=== PATIENT | female | born 1990 | race Caucasian/White ===

== ENCOUNTER 2022-09-26 11:07 | Outpatient (RCR) | payer OTHER, MEDICAID, SELFPAY ==
--- NOTE | 2022-09-26 17:21 | PT.OIE ---
Current Diagnoses Urge incontinence (09/26/22) Visit Care Team Role Provider Type Adarsh Thompson MD Attending Provider Non-Staff Referring Provider Specialty: STEWARD DISHWASHER Address: [address] [place] [address], [address], [place], [address] Email: Physical Therapy Initial Evaluation PT-OP-A Visit Information Start: 09/26/22 09:36 Freq: Status: Active Protocol: Document 09/26/22 11:15 [facility] (Rec: 09/26/22 11:31 [facility] [id number]) Out-Patient Physical Therapy Visit Information Visit Information Visit Type Initial Evaluation Visit Start Time 11:15 Visit Stop Time 12:00 Total Visit Minutes 45 Visit Number 1 Evaluation Information Evaluation Date 09/26/22 PT-OP-B Current Condition Start: 09/26/22 09:36 Freq: Status: Active Protocol: Document 09/26/22 11:15 [facility] (Rec: 09/26/22 11:31 [facility] [id number]) Current Condition History of Current Condition Onset Date during History of Current Condition c section delivery 9.5 lbs and her first , she had either a kidney or bladder infection, She did IVF and gained 100 lbs, she has lost about 60 lbs since delivery. SHe notes when has to void she has to go right away, she will leak on the way to the toilet or leak when she is sitting down to void, She wakes in the middle of the night to void. She has to void a lot more than she used to. SHe will fully lose urine when she has the urge. Pt notes she will leak with intercourse. Prior Treatments and Tests , Treatment Goals Patient/Caregiver Goals goals include decreasing urinary urgency and leakage with urgency PT-OP-I Pelvic Floor Start: 09/26/22 09:36 Freq: Status: Active Protocol: Document 09/26/22 11:15 [facility] (Rec: 09/26/22 14:15 [facility] [id number]) Pelvic Floor Assessment Urine Pelvic Floor Surgery No Urinary Symptoms Urge Sensation Other Urinary Symptoms pt notes she leaks on the way to the bathroom she also report leakage with intercourse Leakage Size Medium Leakage Cause Urge Leaks Per Day 1 Voiding Frequency 10 times Nocturia 2 Pelvic Clock Pelvic Clock 12-3 Atrophy Pelvic Clock 3-6 Guarding,Tightness Perineal Descent Resting Absent Bearing Absent Contraction Ability Voluntary Contraction Weak Voluntary Relaxation Weak Manual Muscle Testing Left 2 Manual Muscle Testing Right 2 Manual Muscle Testing Anterior 2 Manual Muscle Testing Posterior 2 Muscle Endurance (Seconds) 3 Comments Pelvic Floor Comments Wilfred presents with guarding of the left lateral wall of the levator ani and she has difficulty relaxing following a pelvic floor contraction poor endurance of the pelvic floor more than a few seconds PT-OP-M Strength Start: 09/26/22 09:36 Freq: Status: Active Protocol: Document 09/26/22 11:15 [facility] (Rec: 09/26/22 14:15 [facility] [id number]) Trunk Strength Trunk Manual Muscle Testing Flexion 3 Fair Core Stabilization poor core stabilization Comments pt presents with weakness of her core with decreased strength throughout the abdominal wall PT-OP-Q Treatments Start: 09/26/22 09:36 Freq: Status: Active Protocol: Document 09/26/22 11:15 [facility] (Rec: 09/26/22 12:02 [facility] [id number]) Therapeutic Exercises Supine Exercises pelvic floor modified squat stretch Reps/Minutes hold 1-2 minutes happy baby Reps/Minutes hold 1-2 minutes Self-Care/Home Management Treatment Education Patient Education Home Exercise Program Other Education pt educated on urge deference technique and bladder retraining as well as taking time to void to make sure she is fully emptying her bladder PT-OP-T Assessment and Plan Start: 09/26/22 09:36 Freq: Status: Active Protocol: Document 09/26/22 11:15 [facility] (Rec: 09/26/22 14:15 [facility] [id number]) Physical Therapy Assessment Rehab Potential Rehabilitation Potential Excellent Evaluation Complexity Number of Personal Factors/Comorbidities 0 Number of Body Systems Impaired 1-2 Clinical Presentation at Evaluation Stable Impairments Impairments Activity Tolerance,Functional Activities,Pain,Soft Tissue Mobility,Strength,Tone Other Impairments urinary incontnence and urinary urgency Goals 3 Impairment urinary urgency with Wilfred voiding more than 10 times per day and 2 times at night Short Term Goal (STG) wilfred is educated in bladder retraining and the urge deference technique to decrease c/o urinary urgency and improve time between voids STG Duration 4 weeks Health Service Worker Goal (LTG) Wilfred is voiding every 2 hours throughout the day and 0-1 time per night LTG Duration 12 weeks 2 Impairment Poor pelvic floor endurance with Wilfred able to sustain a pelvic floor contraction for a few seconds only Short Term Goal (STG) Wilfred is able to facilitate her pelvic floor and sustain a pelvic floor contraction x 10 seconds in supine STG Duration 5 weeks Health Service Worker Goal (LTG) Wilfred is able to facilitate her pelvic floor and sustain a pelvic floor contracion x 10 seconds in standing LTG Duration 12 weeks 1 Impairment Wilfred reports urinary leakage with strong urge to void and with walking to the toilet at least one time per day wetting through her underware Health Service Worker Goal (LTG) Wilfred reports a overall reducation of urge incontinence and is no longer leaking on the way to the bathroom LTG Duration 12 weeks Assessment Summary Assessment wilfred is a 32 year old female referred to Pt with urge incontinence symptoms post . She underwent a c -section delivery of her son who is 1 year of age. Wilfred reports having symptoms of UTI and or kidney infection when she was and did start to have symptoms of urgency with . It has progressed in the post period and reports she will leak trying to get to the toilet or on long car rides. Wilfred also reports she is under great stress as her has stage IV liver cancer. With examination today Wilfred's c section scar was palpated. She notes numbness in this region and has difficulty with lower abdominal facilitation. With pelvic floor examination Wilfred is weak in all aspects of her pelvic floor. She is guarded and tight on the left lateral wall of the levator ani. Wilfred has difficulty relaxing her pelvic floor following a contraction on the left. She lacks the ability to sustain a pelvic floor contraction more than a few seconds. Wilfred tolerated today's treatment well and is a good candidate for pelvic floor PT Physical Therapy Plan Frequency and Duration Frequency of Treatment 1x/Week Duration of treatment (weeks) 12 Plan of Care Start Date 09/26/22 Plan of Care End Date 12/19/22 Therapeutic Interventions Therapeutic Interventions Home Exercise Program, Neuromuscular Re-education, Patient/Caregiver Education, Self-Care/Home Management, Therapeutic Exercises Modalities Biofeedback Next Visit Focus/Plan Next Note Type Treatment Note Next Visit Plan Begin EMG biofeedback next visit for pelvic floor endurance trainin and Neuro muscular re-education
--- NOTE | 2022-10-02 17:21 | PT.OPPOC ---
Physical, Occupational & Speech Therapy At [facility] Current Diagnoses Urge incontinence (09/26/22) Visit Care Team Role Provider Type Adarsh Thompson MD Attending Provider Non-Staff Referring Provider Specialty: PRODUCTION CELL LEADER Address: [address] [place] [address], [address], [place], [address] Email: Plan Of Care PT-OP-T Assessment and Plan Start: 09/26/22 09:36 Freq: Status: Active Protocol: Document 09/26/22 11:15 [facility] (Rec: 09/26/22 14:15 [facility] [id number]) Physical Therapy Assessment Rehab Potential Rehabilitation Potential Excellent Evaluation Complexity Number of Personal Factors/Comorbidities 0 Number of Body Systems Impaired 1-2 Clinical Presentation at Evaluation Stable Impairments Impairments Activity Tolerance,Functional Activities,Pain,Soft Tissue Mobility,Strength,Tone Other Impairments urinary incontinence and urinary urgency Goals 3 Impairment urinary urgency with Wilfred voiding more than 10 times per day and 2 times at night Short Term Goal (STG) wilfred is educated in bladder retraining and the urge deference technique to decrease c/o urinary urgency and improve time between voids STG Duration 4 weeks Halfway Goal (LTG) Wilfred is voiding every 2 hours throughout the day and 0-1 time per night LTG Duration 12 weeks 2 Impairment Poor pelvic floor endurance with Wilfred able to sustain a pelvic floor contraction for a few seconds only Short Term Goal (STG) Wilfred is able to facilitate her pelvic floor and sustain a pelvic floor contraction x 10 seconds in supine STG Duration 5 weeks Halfway Goal (LTG) Wilfred is able to facilitate her pelvic floor and sustain a pelvic floor contraction x 10 seconds in standing LTG Duration 12 weeks 1 Impairment Wilfred reports urinary leakage with strong urge to void and with walking to the toilet at least one time per day wetting through her underwear Emergency Dept Tech Goal (LTG) Wilfred reports a overall reeducation of urge incontinence and is no longer leaking on the way to the bathroom LTG Duration 12 weeks Assessment Summary Assessment wilfred is a 32 year old female referred to Pt with urge incontinence symptoms post . She underwent a c -section delivery of her son who is 1 year of age. Wilfred reports having symptoms of UTI and or kidney infection when she was and did start to have symptoms of urgency with . It has progressed in the post period and reports she will leak trying to get to the toilet or on long car rides. Wilfred also reports she is under great stress as her has stage IV liver cancer. With examination today Wilfred's c section scar was palpated. She notes numbness in this region and has difficulty with lower abdominal facilitation. With pelvic floor examination Wilfred is weak in all aspects of her pelvic floor. She is guarded and tight on the left lateral wall of the levator ani. Wilfred has difficulty relaxing her pelvic floor following a contraction on the left. She lacks the ability to sustain a pelvic floor contraction more than a few seconds. Wilfred tolerated today's treatment well and is a good candidate for pelvic floor PT Physical Therapy Plan Frequency and Duration Frequency of Treatment 1x/Week Duration of treatment (weeks) 12 Plan of Care Start Date 09/26/22 Plan of Care End Date 12/19/22 Therapeutic Interventions Therapeutic Interventions Home Exercise Program, Neuromuscular Re-education, Patient/Caregiver Education, Self-Care/Home Management, Therapeutic Exercises Modalities Biofeedback Next Visit Focus/Plan Next Note Type Treatment Note Next Visit Plan Begin EMG biofeedback next visit for pelvic floor endurance training and Neuro muscular re-education Plan of Care Dates Plan of Care Start Date 09/26/22 Plan of Care End Date 12/19/22 Electronically Signed by: Charlotte Freedman, PT 10/02/22 [id number] If you are in agreement with this Plan of Care, please return a signed and dated copy. I have reviewed this Plan of Care and certify that the skilled therapy services above are required to meet the patient?s needs. Physician Signature Date Printed Name and Credentials Clinical Instructor Signature Printed Name and Credentials
--- NOTE | 2023-01-08 11:57 | PT.OPDS ---
Current Diagnoses Urge incontinence (09/26/22) Visit Care Team Role Provider Type Adarsh Thompson MD Attending Provider Non-Staff Referring Provider Specialty: MECHANICAL ENGINEERING TECHNOLOGIST Address: [address] [place] [address], [address], [place], [address] Email: Visit Number Visit Number 1 Discharge Summary PT-OP-B Current Condition Start: 09/26/22 09:36 Freq: Status: Active Protocol: Document 09/26/22 11:15 [facility] (Rec: 09/26/22 11:31 [facility] [id number]) Current Condition History of Current Condition Onset Date during History of Current Condition c section delivery 9.5 lbs and her first , she had either a kidney or bladder infection, She did IVF and gained 100 lbs, she has lost about 60 lbs since delivery. SHe notes when has to void she has to go right away, she will leak on the way to the toilet or leak when she is sitting down to void, She wakes in the middle of the night to void. She has to void a lot more than she used to. SHe will fully lose urine when she has the urge. Pt notes she will leak with intercourse. Prior Treatments and Tests , Treatment Goals Patient/Caregiver Goals goals include decreasing urinary urgency and leakage with urgency PT-OP-I Pelvic Floor Start: 09/26/22 09:36 Freq: Status: Active Protocol: Document 09/26/22 11:15 [facility] (Rec: 09/26/22 14:15 [facility] [id number]) Pelvic Floor Assessment Urine Pelvic Floor Surgery No Urinary Symptoms Urge Sensation Other Urinary Symptoms pt notes she leaks on the way to the bathroom she also report leakage with intercourse Leakage Size Medium Leakage Cause Urge Leaks Per Day 1 Voiding Frequency 10 times Nocturia 2 Pelvic Clock Pelvic Clock 12-3 Atrophy Pelvic Clock 3-6 Guarding,Tightness Perineal Descent Resting Absent Bearing Absent Contraction Ability Voluntary Contraction Weak Voluntary Relaxation Weak Manual Muscle Testing Left 2 Manual Muscle Testing Right 2 Manual Muscle Testing Anterior 2 Manual Muscle Testing Posterior 2 Muscle Endurance (Seconds) 3 Comments Pelvic Floor Comments Damari presents with guarding of the left lateral wall of the levator ani and she has difficulty relaxing following a pelvic floor contraction poor endurance of the pelvic floor more than a few seconds PT-OP-M Strength Start: 09/26/22 09:36 Freq: Status: Active Protocol: Document 09/26/22 11:15 [facility] (Rec: 09/26/22 14:15 [facility] [id number]) Trunk Strength Trunk Manual Muscle Testing Flexion 3 Fair Core Stabilization poor core stabilization Comments pt presents with weakness of her core with decreased strength throughout the abdominal wall PT-OP-T Assessment and Plan Start: 09/26/22 09:36 Freq: Status: Active Protocol: Document 01/08/23 11:57 [facility] (Rec: 01/08/23 11:57 [facility] [id number]) Physical Therapy Assessment Assessment Summary Assessment Damari failed to show up for her follow up appointments in PT. SHe will be discharged at this time Physical Therapy Plan Discharge Physical Therapy Discharge Reasons No Longer Attending PT
== END 2023-01-09 10:22 | disposition home or self-care (01) ==
LOC: PHYS 11:07
PROVIDERS: Referring Provider Obstetrics & Gynecology; Visit Provider Obstetrics & Gynecology
DX: N39.41 Urge incontinence (principal)
CPT/HCPCS: 97161; 97535